=== PATIENT | female | born 1985 ===

== ENCOUNTER 2021-04-23 17:38 | Inpatient (IN) ==
[2021-04-23 19:28] LABS: Amphetamines+Metham, Urine Neg (Neg); Barbiturates, Urine Neg (Neg); Benzodiazepine, Urine Neg (Neg); Cocaine, Urine Neg (Neg); MDMA (Ecstacy), Urine Neg (Neg); Methadone, Urine Neg (Neg); Opiate, Urine Neg (Neg); Phencyclidine, Urine Neg (Neg)
[2021-04-23] MEDS ORDERED: LACTATED RINGER'S 1,000 ML IV PRN (21:54)
[2021-04-23] MEDS ORDERED: OXYTOCIN 30 UNITS/500 ML BAG IV PRN (21:54)
[2021-04-23 22:47] LABS: Hematocrit (blood only) 34.9 % (37-47); Hemoglobin 11.6 g/dL (12.0-16.0); Mean Corpuscular Hgb Conc 33.2 g/dL (32-36); Mean Corpuscular Volume 84.3 fL (80-100); Mean Platelet Volume 12.2 fL (7.4-10.4); Platelet Count 196 K/uL (130-400); RDW Coefficient of Variation 13.5 % (11.5-14.5); RDW Standard Deviation 40.8 fL (36.4-46.3); Red Blood Count 4.14 M/uL (4.2-5.4); White Blood Count 9.89 K/uL (4.8-10.8)
--- NOTE | 2021-04-23 22:49 | History & Physical Report ---
Date of Service April 23, 2021 Assessment & Plan (1) : Plan: Anticipate normal delivery Plan: AROM with meconium stained fluid Admission and Anticipated Discharge Date Admission Date: April 23, 2021 History of Present Illness Chief Complaint: labor Primary Care Provider: ASHLEY PCP 35 F [id number] at 39.6 weeks admitted with onset of labor. Patient had no care locally. Care done in [place]. She is planning a private adoption to brother and has an criminal defense attorney arranging details. Her GBS is negative. Patient had Covid in August. Had 3 prior uncomplicated deliveries at term. Allergies Allergy/AdvReac Type Severity Reaction Status Date / Time No Known Allergies Allergy Unverified 04/23/21 18:27 Home Medications Medication Instructions Recorded Confirmed Type aspirin 81 mg chewable tablet 81 mg PO DAILY 04/23/21 04/23/21 History escitalopram oxalate 20 mg tablet 20 mg PO DAILY 04/23/21 04/23/21 History (Lexapro) prenat.vits,mana,zvc-zakn-asscd 1 tab PO DAILY 04/23/21 04/23/21 History Patient History Medical History Abnormal Pap smear of cervix Colposcopy Anxiety SARS-CoV-2 positive Covid positive test 09/25/2020 Spontaneous vaginal delivery Surgical History History of colposcopy [place] teeth removed Social History Smoking Status: Never smoker Hx Alcohol Use: No Hx Substance Use: No Preferred Language: Romanian Beliefs That Will Affect Care: None marital status: Current Living Situation: Family Current Living Situation Comment: lives with kids Other Information That Helps Us Care for You: No Feels Safe at Home: Yes Safety Concerns: Feels Safe At This Time Assistive Devices: None OB History x3 SPECIAL EFFECTS SPECIALIST History wnl Review of Systems All systems reviewed & are unremarkable except as noted in HPI & below Physical Exam Constitutional: WD/WN, vitals as above Respiratory: normal respiratory effort, lungs clear to auscultation Cardiovascular: RRR, no murmur, no edema Skin: no rashes, warm and dry Neurologic: patellar DTR's 2+ bilat, sensation intact Psychiatric: A+Ox3, euthymic affect Genitourinary: normal external appearance OB Exam Abdomen: + vertex and + estimated weight (7.5 lbs) Manual OB Exam: + cervical dilation 5 cm, + cervical effacement 90%, + station -1 and + amniotic fluid meconium Results & Data ([facility] [place]) Vital Signs (Past 12 Hours) Vital Signs Temp Pulse Resp BP 04/23/21 17:47 36.4 C L 88 20 111/68 Laboratory Results 04/23/21 04/23/21 04/23/21 18:42 22:00 22:00 Urine Opiates Screen Neg Ur Methadone, Qual Neg Urine Barbiturates Neg Ur Phencyclidine (PCP) Neg U Amphetamin/Meth Scrn Neg MDMA (Ecstasy) Screen Neg U Benzodiazepines Scrn Neg Ur Cocaine Metabolite Neg U Marijuana (THC) Screen Neg COVID-19 [facility] SARS-CoV-2, RNA, NAAT NEGATIVE Code Status & VTE Plan VTE Prophylaxis Plan VTE Prophylaxis will be ordered: No
--- NOTE | 2021-04-24 01:05 | Delivery Summary ---
Vaginal Delivery Summary Date of Service April 24, 2021 Vaginal Delivery Summary [facility] 02/14/10 weight 8-12. Cord blood obtained and cord blood obtained for full gasses. Placenta delivered spontaneously and intact. No tears. EBL 200 ml. Final sponge and instrument count are correct. Mom stable and baby to nursery.
[2021-04-24] MEDS ORDERED: BENZOCAINE 20% AER SPR 82.5 GM CAN EXT PRN (01:06)
[2021-04-24] MEDS ORDERED: DIPHTHERIA/TETANUS/PERTUSSIS 0.5 ML SYR/VIAL IM ONE (01:06)
[2021-04-24] MEDS ORDERED: SUPERCREAM 0.870% 15 GM JAR EXT PRN (01:06)
[2021-04-24] MEDS ORDERED: HYDROCORTISONE ACETATE 25 MG SUPP PR PRN (01:06)
[2021-04-24] MEDS ORDERED: ACETAMINOPHEN 325 MG TAB PO PRN (01:06)
[2021-04-24] MEDS ORDERED: bisacodyL 10 MG SUPP PR PRN (01:06)
[2021-04-24] MEDS ORDERED: OXYTOCIN 30 UNITS/500 ML BAG IV PRN (01:06)
[2021-04-24 01:10] LABS: Base Excess Cord Venous Blood -3.5 mEq/L (-7.7-1.9); Cord Venous Blood HCO3 22 mmol/L (18.4-26.8); Cord Venous Blood PCO2 40 mmHg (30.4-57.2); Cord Venous Blood PO2 28 mmHg (14.1-43.3); Cord Venous Blood pH 7.35 (7.20-7.44)
[2021-04-24 01:11] LABS: Base Excess Cord Arterial Bld -4.4 mEq/L (-9-1.8); CO2 Cord Arterial Blood 54 mmHg (39.1-73.5); HCO3 Cord Arterial Blood 24 mmol/L (19.7-28.5); PO2 Cord Arterial Blood 19 mmHg (4.1-31.7); pH Cord Arterial Blood 7.26 (7.1-7.38)
[2021-04-24 01:15] LABS: Oxygen Sat Cord Arterial Blood < 60.0 % (<60)
[2021-04-24] MEDS: IBUPROFEN 600 MG TAB PO PRN (01:31)
[2021-04-24] MEDS: ESCITALOPRAM OXALATE 20 MG TAB PO SCH ×2 (01:32→23:53)
[2021-04-24] MEDS: PRENATAL VITAMIN 1 TAB PO SCH (08:20)
[2021-04-24] MEDS: DOCUSATE SODIUM 100 MG CAP PO SCH ×2 (08:20→20:58)
[2021-04-24] MEDS ORDERED: NON-FORMULARY MEDICATION (Prenat.Vits,Cal,Min-Iron-Folic Tablet) PO SCH (09:00)
--- NOTE | 2021-04-24 09:39 | XRay Report ---
XR chest 1V portable CLINICAL HISTORY: Shortness of breath. COMPARISON STUDY: No previous studies for comparison. FINDINGS: Lung volumes are normal. Lungs are clear. There is no pneumothorax or pleural effusion. Car diac size is normal. Mediastinal contours are normal. There is no evidence for pulmonary edema. IMPRESSION: No acute cardiopulmonary findings. ACT 112: Negative or not required by law. Electronically signed by: Khoa Agustin M.D. 04/24/2021 9:38 AM
--- NOTE | 2021-04-24 09:40 | Obstetrical Progress Note ---
Date of Service April 24, 2021 Assessment & Plan (1) Normal course: PPD #1 pt reports SOB hospitalist consult placed Day #:: 1 Subjective Ambulation: ambulating normally Voiding: no voiding problems Passing Gas:: Yes Diet Tolerance:: regular diet Lochia:: Small Feeding Type:: breast feeding Review of Systems All systems reviewed & are unremarkable except as noted in HPI & below Physical Exam Constitutional WD/WN, vitals as above well developed and well nourished Eyes PERRL, conjunctivae normal, anicteric sclerae Neck trachea midline, no thyromegaly Respiratory normal respiratory effort, lungs clear to auscultation Auscultation: no crackles, no rales and no wheezes Cardiovascular RRR, no murmur, no edema Gastrointestinal (Abdomen) normal bowel sounds, soft, nontender, no hepatosplenomegaly Uterus is below umbilicus Musculoskeletal no cyanosis or clubbing, extremities motor strength 5/5 Skin no rashes, warm and dry Neurologic patellar DTR's 2+ bilat, sensation intact Psychiatric A+Ox3, euthymic affect Genitourinary normal external appearance Results & Data ([facility]) Vital Signs (Past 12 Hours) Vital Signs Temp Pulse Pulse Resp BP BP Pulse Ox 04/24/21 08:00 36.9 C 89 22 108/73 98 04/24/21 03:05 36.5 C 86 18 120/72 99 04/24/21 02:47 78 18 114/63 04/24/21 02:38 108 H 18 110/58 L 04/24/21 02:27 86 18 103/68 04/24/21 02:17 93 H 18 100/60 04/24/21 02:07 85 18 105/62 04/24/21 01:57 79 18 107/62 04/24/21 01:47 73 18 108/61 04/24/21 01:37 80 18 106/59 L 04/24/21 01:27 98 H 18 108/67 04/24/21 01:17 82 18 110/61 04/24/21 01:08 85 18 110/62 04/24/21 00:53 78 18 108/57 L 04/23/21 22:40 37.1 C 20
[2021-04-24 09:46] LABS: Hematocrit (blood only) 30.1 % (37-47); Hemoglobin 9.9 g/dL (12.0-16.0); Mean Corpuscular Hemoglobin 27.5 pg (25-34); Mean Corpuscular Volume 83.6 fL (80-100); Mean Platelet Volume 11.4 fL (7.4-10.4); Platelet Count 198 K/uL (130-400); RDW Coefficient of Variation 13.5 % (11.5-14.5); RDW Standard Deviation 41.1 fL (36.4-46.3); White Blood Count 12.57 K/uL (4.8-10.8)
[2021-04-24 10:03] LABS: BUN Creatinine Ratio 12.9 (10-20); Calcium 8.4 mg/dl (8.5-10.1); Creatinine Clr Calc Pharmacy 150.8 ml/min; Est GFR (Non-African American) 122.5 ml/min; Potassium 3.9 mmol/L (3.5-5.1)
[2021-04-24 10:05] LABS: Mean Corpuscular Hgb Conc 32.9 g/dL (32-36)
--- NOTE | 2021-04-24 12:35 | History & Physical Report ---
Date of Service April 24, 2021 Assessment & Plan (1) SOB (shortness of breath): Plan: This is a 35-year-old female with PMH of anxiety and depression who delivered a baby vaginally early this morning. Our medicine service was consulted to evaluate the patient for shortness of breath she developed in setting. SOB since vaginal delivery early this morning, worse with ambulation Afebrile, BP 80s-100s, O2 saturation 99-100% on room air CBC with mild leukocytosis of 12, hgb 9.9 (pre-op 11.6), electrolytes wnl CXR no acute cardiopulmonary findings Covid PCR negative (h/o covid in Sep 2020) EKG pending Anxious in setting of recent delivery, plans for baby's adoption Multifactorial SOB with anxiety, post op blood loss anemia Consider CT chest for eval of PE if SOB continues although low concern with patient saturation at 100% on RA (2) Normal course: Plan: S/p vaginal delivery early this morning. 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 Follow up with primary care Dispo: Per obgyn Patient seen in collaboration with Dr. Justice. Please see addendum. Thank you for this consultation. We will follow the patient with you during their hospital stay. You can reach a member of the [facility] Hospitalist Team 03/05 via pager @ [phone]. Admission and Anticipated Discharge Date Admission Date: April 23, 2021 History of Present Illness Chief Complaint: Shortness of breath Primary Care Provider: NO PCP This is a 35-year-old female with PMH of anxiety and depression who delivered a baby vaginally early this morning. Our medicine service was consulted to evaluate the patient for shortness of breath she developed in setting. Patient states she began to feel short of breath around 5 this morning. Was having difficulty sleeping and could not take full deep breaths. [place] lightheaded when she stood up to walk around but symptoms improved at rest and she has been able to get some sleep on and off. Denies any fever or chills. No cough, congestion or wheezing. No chest pain, palpitations or cough. Does have history of asthma for which she occasionally uses albuterol inhaler. Tried using that this morning without any improvement. Does have history of anxiety and states that she sometimes has difficulty getting a deep breath when she is more acutely anxious, which she admits she is now. Was able to tolerate breakfast this morning without any issues. Has arranged for a private adoption baby to go to brother, who is also at bedside. Patient lives in [place] but delivered baby in [place] to be closer to family. Denies fever, chills, visual changes, chest pain, palpitations, wheezing, nausea, vomiting, dumping, dysuria, diarrhea constipation. Family history significant for MSH3 gene mutation, for which she is positive. Has not undergone colonoscopy yet but has been recommended to do so. Allergies Allergy/AdvReac Type Severity Reaction Status Date / Time No Known Allergies Allergy Unverified 04/23/21 18:27 Home Medications Medication Instructions Recorded Confirmed Type aspirin 81 mg chewable tablet 81 mg PO DAILY 04/23/21 04/23/21 History escitalopram oxalate 20 mg tablet 20 mg PO DAILY 04/23/21 04/23/21 History (Lexapro) prenat.vits,mana,zwt-omwd-xnxuv 1 tab PO DAILY 04/23/21 04/23/21 History Past Med/Surg History Medical History Abnormal Pap smear of cervix Colposcopy Anxiety Depression Monoallelic mutation of MSH3 gene SARS-CoV-2 positive Covid positive test 09/25/2020 Spontaneous vaginal delivery Surgical History History of colposcopy [place] teeth removed Family History Other Colorectal cancer Monoallelic mutation of MSH3 gene Social History Smoking Status: Never smoker Hx Alcohol Use: No Hx Substance Use: No Preferred Language: Kuwaiti Beliefs That Will Affect Care: None marital status: Current Living Situation: Family Current Living Situation Comment: lives with kids Other Information That Helps Us Care for You: No Feels Safe at Home: Yes Safety Concerns: Feels Safe At This Time Assistive Devices: None Review of Systems Review of Systems: At least ten systems reviewed and negative except as noted in the HPI. Results & Data Results & Data ([facility]) Vital Signs (Past 12 Hours) Vital Signs Temp Pulse Pulse Resp BP BP Pulse Ox 04/24/21 08:00 36.9 C 89 22 108/73 98 04/24/21 03:05 36.5 C 86 18 120/72 99 04/24/21 02:47 78 18 114/63 04/24/21 02:38 108 H 18 110/58 L 04/24/21 02:27 86 18 103/68 04/24/21 02:17 93 H 18 100/60 04/24/21 02:07 85 18 105/62 04/24/21 01:57 79 18 107/62 04/24/21 01:47 73 18 108/61 04/24/21 01:37 80 18 106/59 L 04/24/21 01:27 98 H 18 108/67 04/24/21 01:17 82 18 110/61 04/24/21 01:08 85 18 110/62 04/24/21 00:53 78 18 108/57 L Laboratory Results Short CBC 04/23/21 04/24/21 Range/Units 22:27 09:34 WBC 9.89 12.57 H (4.8-10.8) K/uL Hgb 11.6 L 9.9 L (12.0-16.0) g/dL Hct 34.9 L 30.1 L (37-47) % Plt Count 196 198 (130-400) K/uL [facility] 04/24/21 09:34 Sodium 137 Potassium 3.9 Chloride 108 H Carbon Dioxide 21 BUN 7 Creatinine 0.56 L Glucose 137 H Calcium 8.4 L Diagnostic Findings Chest X-Ray 04/24/21 09:09 XR chest 1V portable CLINICAL HISTORY: Shortness of breath. COMPARISON STUDY: No previous studies for comparison. FINDINGS: Lung volumes are normal. Lungs are clear. There is no pneumothorax or pleural effusion. Cardiac size is normal. Mediastinal contours are normal. There is no evidence for pulmonary edema. IMPRESSION: No acute cardiopulmonary findings. ACT 112: Negative or not required by law. Electronically signed by: Khoa Agustin M.D. 04/24/2021 9:38 AM ECG Additional Comments: pending Code Status & VTE Plan VTE Prophylaxis Plan VTE Prophylaxis will be ordered: No Supervising Physician Co-Signing Physician Notes I saw this patient with the physician assistant cross country coach, I participated in the history, physical, review of systems, and physical exam. I reviewed the medications with the patient and the physician assistant cross country coach and helped reconcile the medications. I helped take a detailed family and social history as well. I formulated the assessment and plan personally with the physician assistant cross country coach and went over it with the patient. ROS-No Headache, No Visual Changes, No Nausea, No Vomiting, No Fever, No Chills, No Neck Pain or Stiffness, No Chest Pain, No Palpitations, No SOB, No MCGRATH, No Cough, No Sputum, No Wheezing, No Abdominal Pain, No Diarrhea, No Hematemesis, No Hemoptysis, No Unexpected Weight Loss, No Flank pain, No Melena, No Hematochezia, No Frequency, No Urgency, No Burning, No Hematuria, No Rashes, No Diaphoresis. Appetite is Normal Physical Exam Gen-AAO x 3, NAD, Afebrile Head-NCAT, EOMI, PERRLA, Anicteric Sclera, No Posterior Pharyngeal Erythema Neck-Supple, No JVD, No Thyromegaly, No Masses, No LAD, No Bruits Lungs-Clear to Auscultation Bilaterally, No Rales, No Rhonchi, No Wheezing, No Crepitus Chest-No S4, +S1, +S2, No S3, No Murmurs, No Rubs, No Gallops, No Ectopy Abdomen-Soft, Bowel Sounds Present, Non Tender, Non Distended, No Hepatomegaly, No Splenomegaly, No Palpable Masses, No Rebound, No Rigidity, No Guarding Musculoskeletal-Full Range of Motion Bilaterally, No CVAT Extremities-No Cyanosis, No Clubbing, No Edema Nuero-Cranial Nerves II-XII grossly intact, Motor WNL, DTRs WNL, Strength WNL, Non Focal Psych-Anxious Mood
[2021-04-24] MEDS ORDERED: OPTIRAY 320 125ml IV ONE (15:04)
--- NOTE | 2021-04-24 15:36 | Consultation ---
Date of Consultation April 24, 2021 Assessment & Plan (1) SOB (shortness of breath): This is a 35-year-old female with PMH of anxiety and depression who delivered a baby vaginally early this morning. Our medicine service was consulted to evaluate the patient for shortness of breath she developed in setting. SOB since vaginal delivery early this morning, worse with ambulation Afebrile, BP 80s-100s, O2 saturation 99-100% on room air CBC with mild leukocytosis of 12, hgb 9.9 (pre-op 11.6), electrolytes wnl CXR no acute cardiopulmonary findings Covid PCR negative (h/o covid in Sep 2020) EKG pending Anxious in setting of recent delivery, plans for baby's adoption Multifactorial SOB with anxiety, post op blood loss anemia Consider CT chest for eval of PE if SOB continues although low concern with patient saturation at 100% on RA (2) Normal course: S/p vaginal delivery early this morning. EBL 200 ml Per obgyn (3) Anxiety: Elevated in setting of recent delivery Continue SSRI (4) Depression: Continue SSRI (5) Monoallelic mutation of MSH3 gene: Family history significant for MSH3 gene mutation, for which she is positive Has not undergone colonoscopy yet but has been recommended to do so - reiterated need to do this soon. Follow up with primary care Dispo: Per obgyn Patient seen in collaboration with Dr. Justice. Please see addendum. Thank you for this consultation. We will follow the patient with you during their hospital stay. You can reach a [facility] via pager @ [phone]. Admission and Anticipated Discharge Date Admission Date: April 23, 2021 History of Present Illness Requesting Physician: Dr. Dawson Reason for Consultation: SOB Attending Physician: Demian Potter MD History of Present Illness This is a 35-year-old female with PMH of anxiety and depression who delivered a baby vaginally early this morning. Our medicine service was consulted to evaluate the patient for shortness of breath she developed in setting. Patient states she began to feel short of breath around 5 this morning. Was having difficulty sleeping and could not take full deep breaths. [place] lightheaded when she stood up to walk around but symptoms improved at rest and she has been able to get some sleep on and off. Denies any fever or chills. No cough, congestion or wheezing. No chest pain, palpitations or cough. Does have history of asthma for which she occasionally uses albuterol inhaler. Tried using that this morning without any improvement. Does have history of anxiety and states that she sometimes has difficulty getting a deep breath when she is more acutely anxious, which she admits she is now. Was able to tolerate breakfast this morning without any issues. Has arranged for a private adoption baby to go to brother, who is also at bedside. Patient lives in [place] but delivered baby in [place] to be closer to family. Denies fever, chills, visual changes, chest pain, palpitations, wheezing, nausea, vomiting, dumping, dysuria, diarrhea constipation. Family history significant for MSH3 gene mutation, for which she is positive. Has not undergone colonoscopy yet but has been recommended to do so. Allergies Allergy/AdvReac Type Severity Reaction Status Date / Time No Known Allergies Allergy Unverified 04/23/21 18:27 Home Medications Medication Instructions Recorded Confirmed Type aspirin 81 mg chewable tablet 81 mg PO DAILY 04/23/21 04/23/21 History escitalopram oxalate 20 mg tablet 20 mg PO DAILY 04/23/21 04/23/21 History (Lexapro) prenat.vits,mana,ydf-kfqb-hiwku 1 tab PO DAILY 04/23/21 04/23/21 History Patient History Medical History Abnormal Pap smear of cervix Colposcopy Anxiety Depression Monoallelic mutation of MSH3 gene SARS-CoV-2 positive Covid positive test 09/25/2020 Spontaneous vaginal delivery Surgical History History of colposcopy [place] teeth removed Family History Other Colorectal cancer Monoallelic mutation of MSH3 gene Social History Smoking Status: Never smoker Hx Alcohol Use: No Hx Substance Use: No Preferred Language: Georgian Beliefs That Will Affect Care: None marital status: Current Living Situation: Family Current Living Situation Comment: lives with kids Other Information That Helps Us Care for You: No Feels Safe at Home: Yes Safety Concerns: Feels Safe At This Time Assistive Devices: None Review of Systems Review of Systems: At least ten systems reviewed and negative except as noted in the HPI. Physical Exam Physical Exam: General Appearance: WD/WN, vitals as above, NAD, sitting up in bed, anxious Head: normocephalic, atraumatic Eyes: normal inspection, PERRL, conjunctivae normal, anicteric sclerae ENT: external ear and nose normal, oropharynx normal Neck: normal visual inspection, trachea midline, no thyromegaly Respiratory: normal respiratory effort, lungs clear to auscultation, no wheeze, rales, rhonchi. No accessory muscle use Cardiovascular: regular rate, rhythm, no murmur, normal peripheral pulses, no BLE edema. Vessels: no JVD Chest: normal inspection of chest Abdomen/GI: normal bowel sounds, soft, nontender, no hepatosplenomegaly Extremities/Musculoskeletal: no cyanosis or clubbing, extremities motor strength 5/5 Neurologic: PERRL, EOMI, accommodation nl, no face palsy, no dysarthria, CN's II-XI intact bilaterally and moves all extremities Psychiatric: A+Ox3, anxious Skin: no rashes, normal color, warm/dry Results & Data ([facility]) Vital Signs (Past 12 Hours) Vital Signs Temp Pulse Resp BP Pulse Ox 04/24/21 12:15 36.6 C 93 H 22 110/70 100 04/24/21 08:00 36.9 C 89 22 108/73 98 Laboratory Results Short CBC 04/23/21 04/24/21 Range/Units 22:27 09:34 WBC 9.89 12.57 H (4.8-10.8) K/uL Hgb 11.6 L 9.9 L (12.0-16.0) g/dL Hct 34.9 L 30.1 L (37-47) % Plt Count 196 198 (130-400) K/uL BMP 04/24/21 09:34 Sodium 137 Potassium 3.9 Chloride 108 H Carbon Dioxide 21 BUN 7 Creatinine 0.56 L Glucose 137 H Calcium 8.4 L Diagnostic Findings Chest X-Ray 04/24/21 09:09 XR chest 1V portable CLINICAL HISTORY: Shortness of breath. COMPARISON STUDY: No previous studies for comparison. FINDINGS: Lung volumes are normal. Lungs are clear. There is no pneumothorax or pleural effusion. Cardiac size is normal. Mediastinal contours are normal. There is no evidence for pulmonary edema. IMPRESSION: No acute cardiopulmonary findings. ACT 112: Negative or not required by law. Electronically signed by: Khoa Agustin M.D. 04/24/2021 9:38 AM
--- NOTE | 2021-04-24 15:46 | CT Scan Report ---
CHEST CTA for PULMONARY ARTERIES CT DOSE: 431.96 mGycm HISTORY: Shortness of breath. TECHNIQUE: Multiaxial CT images of the chest were performed following the intravenous administration of contrast to evaluate the pulmonary arteries. Maximal intensity projection images were also obtaine d. A dose lowering technique was utilized adhering to the principles of ALARA. COMPARISON STUDY: None. FINDINGS: Normal caliber thoracic aorta with no evidence for dissection. The heart is normal in size. No pleural or pericardial effusions. No filling defects within the pulmonary arteries to suggest a p ulmonary embolus. Limited views of the upper abdomen demonstrate normal liver and spleen. No mediasti nal hilar lymphadenopathy. Normal esophagus. No fractures within the visualized osseous structures. N o pneumothorax. The central airways are patent. No focal lung consolidations to suggest pneumonia. Fo mana area of air trapping within the right lower lobe. IMPRESSION: No evidence for pulmonary embolus. ACT 112: Negative or not required by law. Electronically signed by: Black Soto M.D. 04/24/2021 3:45 PM
--- NOTE | 2021-04-24 16:51 | Electrocardiogram Report ---
Test Reason : Blood Pressure : / mmHG Vent. Rate : 094 BPM Atrial Rate : 094 BPM P-R Int : 142 ms QRS Dur : 096 ms QT Int : 352 ms P-R-T Axes : 049 047 045 degrees QTc Int : 440 ms Normal sinus rhythm Normal ECG No previous ECGs available Confirmed by Ignacio Solorio ([id number]) on 04/24/2021 4:51:24 PM Referred By: Demian Potter Confirmed By:Solomon Solorio
[2021-04-24] MEDS: ALPRAZolam 0.25 MG TABLET PO PRN (20:59)
[2021-04-25] MEDS: IBUPROFEN 600 MG TAB PO PRN ×2 (06:46→12:54)
[2021-04-25 07:02] LABS: Hematocrit (blood only) 26.7 % (37-47); Hemoglobin 8.6 g/dL (12.0-16.0); Mean Corpuscular Hemoglobin 27.6 pg (25-34); Mean Corpuscular Hgb Conc 32.2 g/dL (32-36); Mean Corpuscular Volume 85.6 fL (80-100); Mean Platelet Volume 11.3 fL (7.4-10.4); Platelet Count 177 K/uL (130-400); RDW Standard Deviation 42.9 fL (36.4-46.3); Red Blood Count 3.12 M/uL (4.2-5.4); White Blood Count 8.75 K/uL (4.8-10.8)
[2021-04-25] MEDS: PRENATAL VITAMIN 1 TAB PO SCH (07:53)
[2021-04-25] MEDS: DOCUSATE SODIUM 100 MG CAP PO SCH (07:53)
--- NOTE | 2021-04-25 08:42 | Obstetrical Progress Note ---
Date of Service April 25, 2021 Assessment & Plan Admission and Anticipated Discharge Date Admission Date: April 23, 2021 Subjective Patient is seen and examined. She feels well, no complaints. Desires d/c home No more CP/SOB Ambulating without dizziness Voiding without difficulty Tolerating regular diet with out N&V Bleeding is minimal No fever/ chills/ CP/ SOB/ N&V/ Leg pain Vital Signs Temp Pulse Resp BP Pulse Ox 04/25/21 07:38 36.5 C 76 16 105/64 100 04/24/21 23:50 37 C 90 18 120/56 L 99 04/24/21 20:50 36.7 C 88 18 127/79 99 Lab Results 04/23/21 04/23/21 04/23/21 Range/Units 18:42 22:00 22:00 WBC (4.8-10.8) K/uL RBC (4.2-5.4) M/uL Hgb (12.0-16.0) g/dL Hct (37-47) % MCV (80-100) fL MCH (25-34) pg MCHC (32-36) g/dL RDW Std Deviation (36.4-46.3) fL RDW Coeff of Sergo (11.5-14.5) % Plt Count (130-400) K/uL MPV (7.4-10.4) fL Cord ABG pH (7.1-7.38) Cord ABG pCO2 (39.1-73.5) mmHg Cord ABG pO2 (4.1-31.7) mmHg Cord ABG HCO3 (19.7-28.5) mmol/L Cord ABG Base Excess (-9-1.8) mEq/L Cord ABG O2 Sat (<60) % Cord VBG pH (7.20-7.44) Cord VBG pCO2 (30.4-57.2) mmHg Cord VBG pO2 (14.1-43.3) mmHg Cord VBG HCO3 (18.4-26.8) mmol/L Cord VBG Base Excess (-7.7-1.9) mEq/L Cord VBG O2 Sat (<68) % Barometric Pressure mm/Hg Blood Gas Comments Sodium (136-145) mmol/L Potassium (3.5-5.1) mmol/L Chloride (98-107) mmol/L Carbon Dioxide (21-32) mmol/L Anion Gap (3-11) BUN (7-18) mg/dl Creatinine (0.6-1.2) mg/dl Est Cr Clr Drug Dosing ml/min Est GFR ( Amer) ml/min Est GFR (Non-Af Amer) ml/min BUN/Creatinine Ratio (10-20) Glucose (70-99) mg/dl Calcium (8.5-10.1) mg/dl Urine Opiates Screen Neg (Neg) Ur Methadone, Qual Neg (Neg) Urine Barbiturates Neg (Neg) Ur Phencyclidine (PCP) Neg (Neg) U Amphetamin/Meth Scrn Neg (Neg) MDMA (Ecstasy) Screen Neg (Neg) U Benzodiazepines Scrn Neg (Neg) Ur Cocaine Metabolite Neg (Neg) U Marijuana (THC) Screen Neg (Neg) COVID[facility]19 [facility]-2, RNA, NAAT NEGATIVE (NEGATIVE) 04/23/21 04/24/21 04/24/21 Range/Units 22:27 00:23 00:23 WBC 9.89 (4.8-10.8) K/uL RBC 4.14 L (4.2-5.4) M/uL Hgb 11.6 L (12.0-16.0) g/dL Hct 34.9 L (37-47) % MCV 84.3 (80-100) fL MCH 28.0 (25-34) pg MCHC 33.2 (32-36) g/dL RDW Std Deviation 40.8 (36.4-46.3) fL RDW Coeff of Sergo 13.5 (11.5-14.5) % Plt Count 196 (130-400) K/uL MPV 12.2 H (7.4-10.4) fL Cord ABG pH 7.26 (7.1-7.38) Cord ABG pCO2 54 (39.1-73.5) mmHg Cord ABG pO2 19 (4.1-31.7) mmHg Cord ABG HCO3 24 (19.7-28.5) mmol/L Cord ABG Base Excess -4.4 (-9-1.8) mEq/L Cord ABG O2 Sat < 60.0 (<60) % Cord VBG pH 7.35 (7.20-7.44) Cord VBG pCO2 40 (30.4-57.2) mmHg Cord VBG pO2 28 (14.1-43.3) mmHg Cord VBG HCO3 22 (18.4-26.8) mmol/L Cord VBG Base Excess -3.5 (-7.7-1.9) mEq/L Cord VBG O2 Sat 64.0 (<68) % Barometric Pressure 736.1 734.3 mm/Hg Blood Gas Comments MENDEZ MENDEZ Sodium (136-145) mmol/L Potassium (3.5-5.1) mmol/L Chloride (98-107) mmol/L Carbon Dioxide (21-32) mmol/L Anion Gap (3-11) BUN (7-18) mg/dl Creatinine (0.6-1.2) mg/dl Est Cr Clr Drug Dosing ml/min Est GFR ( Amer) ml/min Est GFR (Non-Af Amer) ml/min BUN/Creatinine Ratio (10-20) Glucose (70-99) mg/dl Calcium (8.5-10.1) mg/dl Urine Opiates Screen (Neg) Ur Methadone, Qual (Neg) Urine Barbiturates (Neg) Ur Phencyclidine (PCP) (Neg) U Amphetamin/Meth Scrn (Neg) MDMA (Ecstasy) Screen (Neg) U Benzodiazepines Scrn (Neg) Ur Cocaine Metabolite (Neg) U Marijuana (THC) Screen (Neg) COVID-19 Eval Order SARS-CoV-2, RNA, NAAT (NEGATIVE) 04/24/21 04/24/21 04/25/21 Range/Units 09:34 09:34 06:43 WBC 12.57 H 8.75 (4.8-10.8) K/uL RBC 3.60 L 3.12 L (4.2-5.4) M/uL Hgb 9.9 L 8.6 L (12.0-16.0) g/dL Hct 30.1 L 26.7 L (37-47) % MCV 83.6 85.6 (80-100) fL MCH 27.5 27.6 (25-34) pg MCHC 32.9 32.2 (32-36) g/dL RDW Std Deviation 41.1 42.9 (36.4-46.3) fL RDW Coeff of Sergo 13.5 14.0 (11.5-14.5) % Plt Count 198 177 (130-400) K/uL MPV 11.4 H 11.3 H (7.4-10.4) fL Cord ABG pH (7.1-7.38) Cord ABG pCO2 (39.1-73.5) mmHg Cord ABG pO2 (4.1-31.7) mmHg Cord ABG HCO3 (19.7-28.5) mmol/L Cord ABG Base Excess (-9-1.8) mEq/L Cord ABG O2 Sat (<60) % Cord VBG pH (7.20-7.44) Cord VBG pCO2 (30.4-57.2) mmHg Cord VBG pO2 (14.1-43.3) mmHg Cord VBG HCO3 (18.4-26.8) mmol/L Cord VBG Base Excess (-7.7-1.9) mEq/L Cord VBG O2 Sat (<68) % Barometric Pressure mm/Hg Blood Gas Comments Sodium 137 (136-145) mmol/L Potassium 3.9 (3.5-5.1) mmol/L Chloride 108 H (98-107) mmol/L Carbon Dioxide 21 (21-32) mmol/L Anion Gap 8.0 (3-11) BUN 7 (7-18) mg/dl Creatinine 0.56 L (0.6-1.2) mg/dl Est Cr Clr Drug Dosing 150.8 ml/min Est GFR ( Amer) 142.0 ml/min Est GFR (Non-Af Amer) 122.5 ml/min BUN/Creatinine Ratio 12.9 (10-20) Glucose 137 H (70-99) mg/dl Calcium 8.4 L (8.5-10.1) mg/dl Urine Opiates Screen (Neg) Ur Methadone, Qual (Neg) Urine Barbiturates (Neg) Ur Phencyclidine (PCP) (Neg) U Amphetamin/Meth Scrn (Neg) MDMA (Ecstasy) Screen (Neg) U Benzodiazepines Scrn (Neg) Ur Cocaine Metabolite (Neg) U Marijuana (THC) Screen (Neg) COVID-19 Eval Order SARS-CoV-2, RNA, NAAT (NEGATIVE) PE: General: Alert, orientedx3, NAD Abd: soft, NT, fundus firm, below Umbilicus Perineum intact, Lochia rubra minimal Ext; NT, no edema AP: 35 yo s/p , ppd# 1 VSS Afebrile doing well Continue routine care Desires Rx for Xanax All questions were answered D/C home , F/U IN OFFICE Results & Data ([facility]) Vital Signs (Past 12 Hours) Vital Signs Temp Pulse Resp BP Pulse Ox 04/25/21 07:38 36.5 C 76 16 105/64 100 04/24/21 23:50 37 C 90 18 120/56 L 99 04/24/21 20:50 36.7 C 88 18 127/79 99
[2021-04-25] MEDS: ALPRAZolam 0.25 MG TABLET PO PRN (12:54)
[2021-04-25] MEDS ORDERED: bisacodyL 5 MG TABEC PO SCH (20:00)
== END 2021-04-25 15:45 | disposition home or self-care (01) | DRG 806 ==
LOC: OPB 17:38 → 4S1 17:41 → 4S2 04-24 03:05